=== PATIENT | male | born 1960 | race Native Hawaiian/Other Pacific Islander ===

== ENCOUNTER 2017-11-12 13:47 | Emergency (ER) | payer OTHER ==
[~2017-11-12] VITALS: Ht 177.8 cm; Wt 82.5 kg
[2017-11-12 14:34] VITALS: BP 137/98
== END 2017-11-12 14:35 | disposition home or self-care (01) ==
LOC: ED 13:47
DX: L03.116 Cellulitis of left lower limb (principal); J45.909 Unspecified asthma, uncomplicated; Z88.0 Allergy status to penicillin

== ENCOUNTER 2019-03-20 14:23 | Emergency (ER) | payer OTHER ==
[~2019-03-20] VITALS: Ht 182.9 cm; Wt 79.4 kg
[2019-03-20 14:33] VITALS: Ht 182.9 cm; Wt 79.4 kg
[2019-03-20 15:17] VITALS: BP 155/75
== END 2019-03-20 15:17 | disposition home or self-care (01) ==
LOC: ED 14:23
DX: M54.5 Low back pain (principal); J45.909 Unspecified asthma, uncomplicated; Z98.890 Other specified postprocedural states; Z88.0 Allergy status to penicillin
CPT/HCPCS: J3010; Q0162